=== PATIENT | female | born 1970 | race Caucasian/White ===

== ENCOUNTER 2016-09-08 15:44 | Emergency (ER) | payer MEDICAID ==
[~2016-09-08] VITALS: Ht 157.5 cm; Wt 66.0 kg
[2016-09-08 15:51] VITALS: Ht 157.5 cm; Wt 66.0 kg
[2016-09-08] MEDS ORDERED: HYDROCODONE/APAP (5/325) TAB PO ONE (19:00)
--- NOTE | 2016-09-08 19:01 | ERD ---
ER Documentation Chief Complaint Date/Time DATE: 09/08/16 TIME: 18:58 Chief Complaint Complains of abdominal pain x 3 days HPI 46-year-old female who presents the emergency department today complaining of abdominal pain that started yesterday. Patient states that she ate [place] test and started having pain after that. States that the pain comes and goes. She took Tylenol 12 PM today denies any nausea vomiting diarrhea, dysuria, fevers or chills. ROS All systems reviewed and are negative except as per history of present illness. Medications Home Meds Active Scripts Famotidine* (Pepcid*) 20 Mg Tablet, 20 MG PO BID for 10 Days, TAB Prov:MAHIN NICKERSON PA-C 09/08/16 Ibuprofen* (Motrin*) 400 Mg Tab, 400 MG PO Q6, #30 TAB Prov:MAHIN NICKERSON PA-C 09/08/16 Hydrocodone/Acetaminophen ([place] 5-325 Tablet) 1 Each Tablet, 1 TAB PO Q6H Y for PAIN, #12 TAB Prov:MAHIN NICKERSON PA-C 09/08/16 Allergies Allergies: Coded Allergies: No Known Allergy (Unverified , 09/08/16) PMhx/Soc Medical and Surgical Hx: pt denies Medical Hx, pt denies Surgical Hx Hx Alcohol Use: No Hx Substance Use: No Hx Tobacco Use: No Smoking Status: Never smoker Physical Exam Vitals Vital Signs Date Time Temp Pulse Resp B/P Pulse Ox O2 Delivery O2 Flow Rate FiO2 09/08/16 15:51 98.3 62 20 120/55 98 Physical Exam Const: No acute distress Head: Atraumatic Eyes: Normal Conjunctiva ENT: Normal External Ears, Nose and Mouth. Neck: Full range of motion..~ No meningismus. Resp: Clear to auscultation bilaterally Cardio: Regular rate regular rhythm ABD: Soft, periumbilical tenderness. Normal bowel sounds. No epigastric pain no right upper quadrant pain no left lower quadrant pain no right lower quadrant pain. No tenderness McBurney's. Skin: No petechiae or rashes Back: No midline or flank tenderness Ext: No cyanosis, or edema Neur: Awake and alert Psych: Normal Mood and Affect Results 24 hrs Laboratory Tests Test 09/08/16 19:10 Bedside Urine pH (LAB) 6.0 Bedside Urine Protein (LAB) Negative Bedside Urine Glucose (UA) Negative Bedside Urine Ketones (LAB) Negative Bedside Urine Blood Negative Bedside Urine Nitrite (LAB) Negative Bedside Urine Leukocyte Esterase (L Negative Current Medications Medications (Trade) Dose Ordered Sig/Layo Route PRN Reason Start Time Stop Time Status Last Admin Dose Admin Acetaminophen/ Hydrocodone Bitart ([place] (5/325)) 1 tab ONCE ONCE PO 09/08/16 19:00 09/08/16 19:01 Cancel Ibuprofen (Motrin) 800 mg ONCE ONCE PO 09/08/16 19:30 09/08/16 19:31 09/08/16 19:10 Procedures/MDM Is a 46-year-old female who presents to the emergency department today complaining of abdominal pain that started yesterday after eating her knee does. On physical exam patient has periumbilical pain. She has no other symptoms. She has no nausea vomiting or diarrhea or dysuria. I did obtain a UA and urine test. I had planned to obtain laboratory work given the patient's age and complaint of abdominal pain however patient declined at this time stating that she just wanted something for her pain and wanted to be able to get to work tonight. This is the patient's first visit to the emergency department UA is negative for infection Urine test is negative I had originally offered the patient [place] however she stated that she wanted to get to work tonight and therefore I gave her Motrin here in the emergency department. I will give her prescription for [place], Motrin, Pepcid for Patient has abdominal pain of uncertain etiology however patient is afebrile and otherwise well-appearing. She does have some periumbilical pain however she has no nausea or vomiting, diarrhea dysuria or any other symptoms and I do have low suspicion for acute surgical abdomen at this time. At this time the patient is stable for discharge and outpatient management. Patient should follow up with their PCP in the next 1-2 days. They may return to the emergency department sooner for any persistent or worsening of symptoms. Patient understood and agreed with the plan. Departure Diagnosis: Primary Impression: Abdominal pain Abdominal location: periumbilical Qualified Code: R10.33 - Periumbilical abdominal pain Condition: Fair MAHIN NICKERSON PA-C September 08, 2016 19:01
[2016-09-08 19:09] LABS: URINE BLOOD (Dip) POC Negative (NEGATIVE)
[2016-09-08] MEDS ORDERED: IBUP400T22 PO (19:17)
[2016-09-08] MEDS ORDERED: HYDR-906 PO (19:17)
[2016-09-08] MEDS ORDERED: FAMO-18 PO (19:18)
[2016-09-08] MEDS ORDERED: IBUPROFEN 800 MG TAB PO ONE (19:30)
== END 2016-09-08 19:22 | disposition home or self-care (01) ==
LOC: FTE 15:44
DX: R10.33 Periumbilical pain (principal)
CPT/HCPCS: 81003; Z7502; Z7610; 99283

== ENCOUNTER 2018-04-26 20:00 | Emergency (ER) | END 2018-04-27 00:47 | disposition home or self-care (01) ==

== ENCOUNTER 2018-05-21 07:00 | Emergency (ER) | payer MEDICAID ==
[~2018-05-21] VITALS: Wt 66.3 kg
[~2018-05-21 07:00] MED LIST: FAMO-96 PO; HYDR-4011 PO; IBUP-1542 PO; IBUP-1561 PO; TRAM50TA2 PO
[2018-05-21] MEDS ORDERED: morphine 4 MG/ML VIAL IV STA (07:34)
[2018-05-21] MEDS ORDERED: SOD CHLORIDE 0.9% 1,000 ML IV STA (07:34)
[2018-05-21] MEDS ORDERED: ONDANSETRON 4 MG INJ IV STA (07:34)
--- NOTE | 2018-05-21 07:40 | ERD ---
ER Documentation Chief Complaint Chief Complaint ABD PAIN WITH FEVER X 1 WEEK; DYSURIA/VOMITING X 3 DAYS HPI This is a 47-year-old female with no past medical history that presents to the emergency department complaining of abdominal pain for 1 week. She states the pain has been localized to the left lower quadrant does not radiate. 3 days prior to arrival she started to develop frequency urgency and dysuria. She had multiple episodes of nonbloody nonbilious emesis with no diarrhea. She has been taking ibuprofen as she states she has had a tactile fever with shaking and chills. She denies any gross hematuria. She states he is never had any similar symptoms in the past. There is no alleviating or exacerbating factors to the abdominal pain which she states is a sharp shooting pain, 8 out of 10 in intensity. She denies any recent travel. She has no chest pain. She has no shortness of breath. She had a previous hysterectomy. ROS All systems reviewed and are negative except as per history of present illness. Medications Home Meds Reported Medications Levothyroxine Sodium* (Levothyroxine Sodium*) 50 Mcg Tablet, 50 MCG PO BEFORE BREAKFAST, #30 TAB 05/21/18 Discontinued Scripts Tramadol HCl (Tramadol HCl) 50 Mg Tablet, 50 MG PO Q6 PRN for PAIN, #20 TAB Prov:SARAHI BLOOM PA-C 04/27/18 Ibuprofen* (Motrin*) 600 Mg Tab, 600 MG PO Q6H PRN for PAIN AND OR ELEVATED TEMP, #30 TAB Prov:SARAHI BLOOM PA-C 04/27/18 Famotidine* (Pepcid*) 20 Mg Tablet, 20 MG PO BID for 10 Days, TAB Prov:MAHIN NICKERSON PA-C 09/08/16 Ibuprofen* (Motrin*) 400 Mg Tab, 400 MG PO Q6, #30 TAB Prov:MAHIN NICKERSON PA-C 09/08/16 Hydrocodone/Acetaminophen ([place] 5-325 Tablet) 1 Each Tablet, 1 TAB PO Q6H PRN for PAIN, #12 TAB Prov:MAHIN NICKERSONC 09/08/16 Allergies Allergies: Coded Allergies: No Known Allergy (Unverified , 09/08/16) PMhx/Soc History of Surgery: Yes (HYSTERECTOMY) Anesthesia Reaction: No Hx Neurological Disorder: No Hx Respiratory Disorders: No Hx Cardiac Disorders: No Hx Miscellaneous Medical Probl: Yes (HYTHYROIDISM) Hx Alcohol Use: No Hx Substance Use: No Hx Tobacco Use: No Smoking Status: Never smoker Physical Exam Vitals Vital Signs Date Temp Pulse Resp B/P (MAP) Pulse Ox O2 O2 Flow FiO2 Time Delivery Rate 05/21/18 99.2 88 18 116/51 99 07:03 (72) Physical Exam Constitutional:Well-developed. Well-nourished. HEENT:Normocephalic. Atraumatic.Pupils were equal round reactive to light. Dry mucous membranes.No tonsillar exudates. Neck: No nuchal rigidity. No lymphadenopathy. No posterior cervical spine tenderness or step-offs. Respiratory: Not using accessory muscles of respiration.Lungs were clear to auscultation bilaterally. No rhonchi. No rales. No wheezing. Cardiovascular: Regular rate regular rhythm.No murmurs. No rubs were appreciated.S1, S2 normal. Distal pulses are palpable 2+ bilaterally. GI: Abdomen was soft. Left lower quadrant tenderness. Non Distended. No pulsatile abdominal masses or bruits. No rebound. Voluntary guarding. Bowel sounds were present and normal. Muscle skeletal: Full range of motion of both the upper and lower extremities bilaterally.Normal muscle tone.No assymetrical calf tenderness or swelling. Skin: No petechia, no purpura. No lesions on the palms or the soles of the feet. No maculopapular rash. NEURO: Patient was alert, awake, orientated x3.No facial droop. Gait observed and normal with no ataxia.Speech had regular rate and rhythm. No focal neurological deficits. Result Diagram: 05/21/18 0741 05/21/18 0741 Results 24 hrs Laboratory Tests Test 05/21/18 07:41 White Blood Count 16.1 10^3/ul Red Blood Count 4.04 10^6/ul Hemoglobin 12.7 g/dl Hematocrit 37.6 % Mean Corpuscular Volume 93.1 fl Mean Corpuscular Hemoglobin 31.4 pg Mean Corpuscular Hemoglobin Concent 33.8 g/dl Red Cell Distribution Width 12.7 % Platelet Count 250 10^3/UL Mean Platelet Volume 9.9 fl Immature Granulocytes % 0.600 % Neutrophils % 85.2 % Lymphocytes % 5.1 % Monocytes % 8.8 % Eosinophils % 0.1 % Basophils % 0.2 % Nucleated Red Blood Cells % 0.0 /100WBC Immature Granulocytes # 0.090 10^3/ul Neutrophils # 13.7 10^3/ul Lymphocytes # 0.8 10^3/ul Monocytes # 1.4 10^3/ul Eosinophils # 0.0 10^3/ul Basophils # 0.0 10^3/ul Nucleated Red Blood Cells # 0.0 10^3/ul Prothrombin Time 13.6 Sec Prothrombin Time Ratio 1.1 INR International Normalized Ratio 1.03 Activated Partial Thromboplast Time 29.9 Sec Urine Color YELLOW Urine Clarity CLOUDY Urine pH 5.0 Urine Specific [place] 1.017 Urine Ketones NEGATIVE mg/dL Urine Nitrite POSITIVE mg/dL Urine Bilirubin NEGATIVE mg/dL Urine Urobilinogen NEGATIVE mg/dL Urine Leukocyte Esterase 3+ [place]/ul Urine Microscopic RBC 5 /HPF Urine Microscopic WBC > 182 /HPF Urine Squamous Epithelial Cells FEW /HPF Urine Renal Epithelial Cells FEW /HPF Urine Bacteria MANY /HPF Urine Mucus MODERATE /HPF Urine Hemoglobin 2+ mg/dL Urine Glucose NEGATIVE mg/dL Urine Total Protein 1+ mg/dl Sodium Level 140 mmol/L Potassium Level 3.5 mmol/L Chloride Level 102 mmol/L Carbon Dioxide Level 24 mmol/L Anion Gap 14 Blood Urea Nitrogen 15 mg/dl Creatinine 0.86 mg/dl Est Glomerular Filtrat Rate mL/min > 60 mL/min Glucose Level 128 mg/dl Calcium Level 8.9 mg/dl Total Bilirubin 0.3 mg/dl Direct Bilirubin 0.00 mg/dl Indirect Bilirubin 0.3 mg/dl Aspartate Amino Transf (AST/SGOT) 17 IU/L Alanine Aminotransferase (ALT/SGPT) 19 IU/L Alkaline Phosphatase 64 IU/L Troponin I < 0.012 ng/ml Total Protein 7.5 g/dl Albumin 3.9 g/dl Globulin 3.60 g/dl Albumin/Globulin Ratio 1.08 Amylase Level 56 U/L Lipase 78 U/L Current Medications Medications Dose Sig/Layo Start Time Status Last (Trade) Ordered Route PRN Stop Time Admin Dose Reason Admin Sodium 1,000 ml @ Q1H STAT 05/21/18 DC 05/21/18 Chloride 1,000 mls/hr IV 07:34 07:48 05/21/18 08:33 Morphine 4 mg ONCE STAT 05/21/18 DC 05/21/18 Sulfate IV 07:34 07:48 (morphine) 05/21/18 07:36 Ondansetron 4 mg ONCE STAT 05/21/18 DC 05/21/18 HCl (Zofran IV 07:34 07:48 Inj) 05/21/18 07:36 IV Flush 10 ml STK-MED 05/21/18 DC 05/21/18 (NS 10 ml) ONCE .ROUTE 07:54 08:31 05/21/18 07:55 Sodium 100 ml @ ud STK-MED 05/21/18 DC 05/21/18 Chloride ONCE .ROUTE 07:54 08:31 05/21/18 07:55 Iohexol 150 ml STK-MED 05/21/18 DC 05/21/18 (Omnipaque ONCE .ROUTE 07:54 08:31 300mg/ ml) 05/21/18 07:55 Procedures/MDM This patient presented to the emergency department with abdominal pain and was seen and evaluated by myself. My differential diagnosis included but was not limited to abdominal aortic aneurysm, appendicitis, pancreatitis, perforated peptic ulcer, perforated viscus, Boerhaaves syndrome or visceral pain such as diverticulitis, DKA, esophagitis, hepatitis or bowel obstruction. The patient was placed on a alarm security or surveillance monitor, continuous pulse oximetry, and IV access was established by nursing staff. The patient received intravenous morphine and Zofran for analgesia control. I obtained a 12-lead EKG tracing to rule out for atypical microinfarction. 12 Lead EKG tracing ordered and reviewed by myself showed: Normal sinus rhythm of 75 bpm and no arrhythmia. LA interval normal. QRS duration normal. No ST segment elevation No ST segment depression. No changes consistent with acute ischemia. The patient leukocytosis with white blood cell count of 16,000. The patient had a significant urinary tract infection with pyuria of greater than 182 white blood cells. Her physical exam findings were suggestive of pyelonephritis. She has received IV Toradol. Urine culture was obtained and she received IV c eftriaxone. Due to the severity of her pain with voluntary guarding I did feel is necessary to obtain a CT scan of the abdomen. This was reviewed by myself and the radiologist and indicated the following: Findings suggestive of right-sided urinary tract infection including pyelonephritis. No associated loculated drainable abscess. Nonobstructing 3 mm stone in the interpolar right kidney. No stone is seen within the right ureter or bladder. Trace right pleural effusion, perhaps reactive. The patient's pain had improved. There is no evidence of sepsis. Patient was nontoxic in appearance. She was able to tolerate oral intake. I did feel she can be safely discharged home with oral antibiotics which included Keflex and Motrin for analgesic control. The patient was discharged home in fair condition. They were instructed to return to the emergency department at any time if there was any worsening of their condition. The patient stated they would follow up with their PCP in the next 24-48 hours to initiate a suitable medication regimen under the care of their PCP as well as to allow their PCP to monitor any drug reactions. The patient was discharged home with prescriptions after they gave informed consent to the new medication. They were also fully informed by myself on the adverse effects and adverse drug interactions in order to provide adequate safeguards to prevent possible adverse reactions to medications. Departure Diagnosis: Primary Impression: Pyelonephritis Additional Impression: Nephrolithiasis Condition: ALEKSEY Macias MD May 21, 2018 07:40
[2018-05-21] MEDS ORDERED: IOHEXOL 300MG/ML 150 ML BTL ONE (07:54)
[2018-05-21] MEDS ORDERED: SOD CHLORIDE 0.9% 100 ML ONE (07:54)
[2018-05-21] MEDS ORDERED: LEVO50TA7 PO (08:56)
[2018-05-21] MEDS ORDERED: KETOROLAC 30 MG INJ IV STA (09:29)
[2018-05-21] MEDS ORDERED: CEFTRIAXONE 1 GM/50 ML (PMX) 50 ML IVPB ONE (09:30)
[2018-05-21] MEDS ORDERED: CEPH-443 PO (09:33)
[2018-05-21] MEDS ORDERED: PHEN-537 PO (09:33)
[2018-05-21] MEDS ORDERED: IBUP800T48 PO (09:33)
[2018-05-21] MEDS ORDERED: PHENAZOPYRIDINE 100 MG TAB PO ONE (10:00)
[2018-05-21] MEDS ORDERED: FLUC150T PO (11:16)
[2018-05-21 11:22] VITALS: BP 92/55; PULSE 89; RESP 17
== END 2018-05-21 11:48 | disposition home or self-care (01) ==
LOC: E/R 07:00
DX: N12 Tubulo-interstitial nephritis, not specified as acute or chronic (principal); N20.0 Calculus of kidney
CPT/HCPCS: 74177; 80053; 81001; 82150; 83690; 84484; 84703; 85025; 85610; 85730; 87086; 87400; 93005; 96374; 96375; J0696; J1885; J2270; J2405; J7030; Q9967; Z7502; Z7610

== ENCOUNTER 2018-10-16 17:11 | Observation (INO) | payer MEDICAID ==
[~2018-10-16] VITALS: Ht 157.5 cm; Wt 66.0 kg
[~2018-10-16 17:11] MED LIST changes: +CEPH-443 PO; -FAMO-96 PO; +FLUC150T PO; -HYDR-4011 PO; -IBUP-1542 PO; -IBUP-1561 PO; +IBUP800T48 PO; +LEVO50TA7 PO; +PHEN-537 PO; -TRAM50TA2 PO
[2018-10-16 17:18] VITALS: Ht 157.5 cm; Wt 66.0 kg
[2018-10-16] MEDS ORDERED: SOD CHLORIDE 0.9% 1,000 ML IV STA (17:40)
--- NOTE | 2018-10-16 18:16 | STROKE ---
Date/Time of Note Date/Time of Note DATE: 10/16/18 TIME: 21:14 Patient Information General Arrival Date Age 48 Gender female Weight 66 kg Vital Signs Vital Signs Vital Signs Date Temp Pulse Resp B/P (MAP) Pulse Ox O2 O2 Flow FiO2 Time Delivery Rate 10/16/18 Nasal 2 17:59 Cannula 10/16/18 98.1 74 18 125/62 98 17:18 (83) Patient History Current Medications Allergies: Coded Allergies: No Known Allergy (Unverified , 09/08/16) NIH Stroke Scale NIH Stroke Scale Date/Time Recorded DATE: 10/16/18 TIME: 21:14 Submitted By Dirk Martin t-PA Imaging Review Date/Time Imaging Reviewed DATE: 10/16/18 TIME: 21:14 t-PA Administration Weight 66 kg Recommedation submitted by Dirk Martin Recommendations Recommendation Called regarding advice for further workup. 48yo woman who woke up at noon with b/l facial numbness, blurry vision, and loss of taste. Blurry vision resolved. Head CT without acute process. Advised that would be atypical for an acute ischemic stroke. Also, not a candidate for acute stroke intervention given low NIHSS and out of time window for tPA. Advised to proceed with MRI head first, and from there, should demonstrate a stroke, can proceed with rest of workup, including vessel imaging, at that time. DIRK MARTIN Oct 16, 2018 18:16
[2018-10-16] MEDS ORDERED: ASPIRIN 325 MG TAB PO ONE (19:30)
--- NOTE | 2018-10-16 21:15 | ERD ---
ER Documentation Chief Complaint Chief Complaint NUMBNESS OF FACE , ONSET 1200 MD , B/L EQUAL DOCK HAND , NO DROOP HPI This is a 48-year-old female who states she took a nap at 1130 when she woke up at noon she had bilateral facial numbness with the inability to taste with blurry vision bilaterally. She had no difficulty swallowing or speaking no focal distal extremity complaints of numbness or weakness. No headache no prior stroke symptoms. She says currently her vision is back to normal still has the facial and taste symptoms. She try to eat a meal to see if her taste would get better but she cannot taste any of the food ROS All systems reviewed and are negative except as per history of present illness. Medications Home Meds Active Scripts Fluconazole* (Diflucan*) 150 Mg Tablet, 150 MG PO ONCE, #1 TAB Prov:ALEKSEY MORA MD 05/21/18 Phenazopyridine Hcl* (Pyridium*) 100 Mg Tab, 100 MG PO TID PRN for URINARY PAIN, #8 TAB Prov:ALEKSEY MORA MD 05/21/18 Cephalexin* (Keflex*) 500 Mg Capsule, 500 MG PO QID for 10 Days, CAP Prov:ALEKSEY MORA MD 05/21/18 Ibuprofen* (Motrin*) 800 Mg Tab, 800 MG PO Q6H PRN for PAIN AND OR ELEVATED TEMP, #30 TAB Prov:ALEKSEY MORA MD 05/21/18 Reported Medications Levothyroxine Sodium* (Levothyroxine Sodium*) 50 Mcg Tablet, 50 MCG PO BEFORE BREAKFAST, #30 TAB 05/21/18 Allergies Allergies: Coded Allergies: No Known Allergy (Unverified , 09/08/16) PMhx/Soc History of Surgery: Yes (HYSTERECTOMY) Anesthesia Reaction: No Hx Neurological Disorder: No Hx Respiratory Disorders: No Hx Cardiac Disorders: No Hx Miscellaneous Medical Probl: Yes (HYTHYROIDISM) Hx Alcohol Use: No Hx Substance Use: No Hx Tobacco Use: No Smoking Status: Never smoker FmHx Family History: No coronary disease Physical Exam Vitals Vital Signs Date Temp Pulse Resp B/P (MAP) Pulse Ox O2 O2 Flow FiO2 Time Delivery Rate 10/16/18 64 16 116/63 100 Nasal 2.0 18:43 (80) Cannula 10/16/18 Nasal 2 17:59 Cannula 10/16/18 98.1 74 18 125/62 98 17:18 (83) Physical Exam Const: Well-developed, well-nourished Head: Atraumatic, normocephalic Eyes: Normal Conjunctiva, PERRLA, EOMI, normal sclera, no nystagmus ENT: Normal External Ears, Nose and Mouth, moist mucus membranes, bilateral face paresthesia from the anterior face and down, she cannot taste. There is no facial weakness. Neck: Full range of motion. No meningismus, no lymphadenopathy. Resp: Clear to auscultation bilaterally, no wheezing, rhonchi, rales Cardio: Regular rate and rhythm, no murmurs, S1 S2 present Abd: Soft, non tender x 4, non distended. Normal bowel sounds, no g uarding or rebound, no pulsitile abdominal masses or bruits Skin: No petechiae or rashes, no ecchymosis , no maculopapular rash Back: No midline or flank tenderness Ext: No cyanosis, or edema, FROM x 4, normal inspection, neurovascularly intact x 4 Neur: Awake and alert, STR 5/5 x 4, sensation intact x 4, no focal findings, cerebellum intact Psych: Normal Mood and Affect Result Diagram: 10/16/18175510/16/181755 Results 24 hrs Laboratory Tests Test 10/16/18 17:56 10/16/18 19:03 White Blood Count 8.2 10^3/ul Red Blood Count 4.39 10^6/ul Hemoglobin 13.6 g/dl Hematocrit 40.8 % Mean Corpuscular Volume 92.9 fl Mean Corpuscular Hemoglobin 31.0 pg Mean Corpuscular Hemoglobin Concent 33.3 g/dl Red Cell Distribution Width 13.1 % Platelet Count 258 10^3/UL Mean Platelet Volume 10.3 fl Immature Granulocytes % 0.200 % Neutrophils % 47.4 % Lymphocytes % 32.4 % Monocytes % 8.3 % Eosinophils % 11.2 % Basophils % 0.5 % Nucleated Red Blood Cells % 0.0 /100WBC Immature Granulocytes # 0.020 10^3/ul Neutrophils # 3.9 10^3/ul Lymphocytes # 2.6 10^3/ul Monocytes # 0.7 10^3/ul Eosinophils # 0.9 10^3/ul Basophils # 0.0 10^3/ul Nucleated Red Blood Cells # 0.0 10^3/ul Prothrombin Time 11.6 Sec Prothrombin Time Ratio 0.9 INR International Normalized Ratio 0.84 Activated Partial Thromboplast Time 29.7 Sec Sodium Level 141 mmol/L Potassium Level 3.7 mmol/L Chloride Level 106 mmol/L Carbon Dioxide Level 28 mmol/L Anion Gap 7 Blood Urea Nitrogen 20 mg/dl Creatinine 0.99 mg/dl Est Glomerular Filtrat Rate mL/min 60 mL/min Glucose Level 100 mg/dl Calcium Level 9.3 mg/dl Troponin I < 0.012 ng/ml Triglycerides Level 149 mg/dl Cholesterol Level 160 mg/dl LDL Cholesterol, Calculated 85 mg/dl HDL Cholesterol 45 mg/dl Cholesterol/HDL Ratio 3.5 RATIO Thyroid Stimulating Hormone (TSH) 1.860 MIU/L Free Thyroxine 1.50 ng/dl Free Triiodothyronine (T3) pg/mL 4.19 pg/ml POC Beta HCG, Qualitative NEGATIVE Current Medications Medications Dose Sig/Layo Start Time Status Last (Trade) Ordered Route PRN Stop Time Admin Dose Reason Admin Sodium 1,000 ml @ Q1H STAT 10/16/18 DC 10/16/18 Chloride 1,000 mls/hr IV 17:40 10/16/18 18:14 18:39 Aspirin 325 mg ONCE ONCE 10/16/18 DC 10/16/18 (Aspirin) PO 19:30 10/16/18 20:26 19:31 Procedures/[place] [id number] Radiology Main Line: [phone] DIAGNOSTIC IMAGING REPORT Patient: SHABBIR CASTANEDA : 1970 Age: 48 Sex: F MR #: [id number] DOS: 10/16/18 1740 Ordering MD: AIMEE MISHRA DO Location: E/R Room/Bed: PROCEDURE: CT Brain without contrast. CLINICAL INDICATION: Stroke TECHNIQUE: A CT of the brain was performed on a multidetector CT scanner utilizing axial imaging from the skull base through the vertex without IV c ontrast. Multiplanar reformatted images were made. Images were reviewed on a PACS workstation. The CTDIvol is 38 mGy and the DLP is 634 mGycm. DICOM images are available. One or more of the following dose reduction techniques were utilized: 1.) Automated exposure control 2.) Adjustment of the mA +/- kV according to patient's size 3.) Use of iterative reconstruction technique. COMPARISON: An FINDINGS: There is no intracranial hemorrhage, mass effect, or midline shift. No extra- axial fluid collection is seen. The ventricles and sulci are normal in size and configuration. The density of the brain is normal, and the nye white matter differentiation appears well-preserved. The visualized paranasal sinuses and osseous structures are grossly unremarkable. IMPRESSION: 1. No evidence of acute intracranial pathology. 2. The brain is normal in appearance. Findings were telephoned to referring physician at 05:55 p.m. on date of exam. .Morgan Baires MD, MD Date Time Electronically viewed and signed by .Morgan Baires MD, on 10/16/2018 17:56 .A/ CC: AIMEE MISHRA DO [id number] [place] [id number] Radiology Main Line: [phone] DIAGNOSTIC IMAGING REPORT Patient: SHABBIR CASTANEDA : 1970 Age: 48 Sex: F MR #: [id number] DOS: 10/16/18 1740 Ordering MD: AIMEE MISHRA DO Location: E/R Room/Bed: PROCEDURE: XR Chest. CLINICAL INDICATION: Stroke TECHNIQUE: XR CHEST AP PORTABLE COMPARISON: None available. FINDINGS: The lungs are clear. No focal opacification is seen. No pneumothorax or pleural effusion is seen. The cardiomediastinal silhouette is unremarkable. The osseous structures are grossly unremarkable. IMPRESSION: No evidence of acute cardiopulmonary disease. RPTAT: QQ .Domingo Adamson MD, Date Time Electronically viewed and signed by .Domingo Adamson MD, on 10/16/2018 18:25 .A/ CC: AIMEE MISHRA DO [id number] Brain MRI report by radiologist on the phone says there is no CVA but there is white matter changes in the left frontal lobe that could be MS lesions also there is bilateral parotid nodules. The 7th cranial nerve goes through the parotids and she is recommending dedicated MRI of this region to see if there is some type of parotid inflammation impinging both of her 7th cranial nerve that would be affecting her taste however the facial sensation would be more likely a 5th cranial nerves as well We will admit for further work-up Departure Diagnosis: Primary Impression: Facial numbness Additional Impression: Loss of taste Condition: Stable AIMEE MISHRA DO Oct 16, 2018 21:11
[2018-10-16] MEDS ORDERED: SOD CHLORIDE 0.9% 1,000 ML IV SCH (21:19)
[2018-10-16] MEDS ORDERED: ACETAMINOPHEN 325 MG TAB PO PRN ×2 (21:30→23:30)
[2018-10-16] MEDS ORDERED: ONDANSETRON 4 MG INJ IV PRN ×2 (21:30→23:30)
[2018-10-16 23:08] VITALS: BP 126/61; PULSE 60; RESP 18
[2018-10-16 23:12] VITALS: BP 126/61; PULSE 60; RESP 20
[2018-10-16] MEDS ORDERED: DOCUSATE SODIUM 100 MG CAP PO PRN (23:30)
[2018-10-16] MEDS ORDERED: LORAZEPAM 2 MG INJ IV PRN (23:30)
[2018-10-16] MEDS ORDERED: HYDROCODONE/APAP (5/325) TAB PO PRN (23:30)
[2018-10-16] MEDS ORDERED: morphine 2 MG INJ IV PRN (23:30)
[2018-10-16] MEDS ORDERED: MAGNESIUM HYDROXIDE 30ML CUP PO PRN (23:30)
[2018-10-16] MEDS ORDERED: NITROGLYCERIN (SL) 0.4 MG TAB SL PRN (23:30)
[2018-10-16] MEDS ORDERED: ALBUTEROL/IPRATROPIUM (NEB) 3 ML AMP HHN PRN (23:30)
[2018-10-16] MEDS ORDERED: NACL 0.9% 3 ML SYG IV SCH (23:30)
[2018-10-16] MEDS ORDERED: hydrALAzine 20 MG INJ IV PRN (23:30)
[2018-10-16] MEDS: SOD CHLORIDE 0.45% 1,000 ML IV SCH (23:46)
[2018-10-17 02:31] VITALS: BP_SYST 95; BP_DIAS 63; BP_DIAS 93; PULSE 58; RESP 19
--- NOTE | 2018-10-17 04:37 | HP ---
Date/Time of Note Date/Time of Note DATE: 10/17/18 TIME: 04:30 Assessment/Plan VTE Prophylaxis SCD applied (from Nsg): No SCD contraindicated: other Pharmacological prophylaxis: heparin Lines/Catheters IV Catheter Type (from Nrsg): Peripheral IV Assessment/Plan Hospital Course Assessment and plan: 48-year-old female past medical history of hypothyroidism who comes into the ER after experiencing facial numbness, ruled out for acute stroke but does have nonspecific white matter hyperintensity on brain MRI. 1. Facial numbness: Given the abnormal MRI brain scan findings, will go ahead and obtain neurology consult -Consider ENT consult as well for further evaluation of the parotid glands given the MRI findings and will get MRI brain and neck with contrast as recommended by the radiologist. -Follow-up carotid Doppler study and echocardiogram, also check TSH, A1c, lipid panel -For now aspirin 2. Hypothyroidism: We will follow thyroid panel labs -Continue Synthroid Result Diagram: 10/16/18 1756 10/16/18 1756 Results 24hrs Laboratory Tests Test 10/16/18 17:56 10/16/18 19:03 10/16/18 19:30 White Blood Count 8.2 # Red Blood Count 4.39 Hemoglobin 13.6 Hematocrit 40.8 Mean Corpuscular Volume 92.9 Mean Corpuscular Hemoglobin 31.0 Mean Corpuscular Hemoglobin Concent 33.3 Red Cell Distribution Width 13.1 Platelet Count 258 Mean Platelet Volume 10.3 Immature Granulocytes % 0.200 Neutrophils % 47.4 Lymphocytes % 32.4 Monocytes % 8.3 Eosinophils % 11.2 H Basophils % 0.5 Nucleated Red Blood Cells % 0.0 Immature Granulocytes # 0.020 Neutrophils # 3.9 Lymphocytes # 2.6 Monocytes # 0.7 Eosinophils # 0.9 H Basophils # 0.0 Nucleated Red Blood Cells # 0.0 Prothrombin Time 11.6 L Prothrombin Time Ratio 0.9 INR International Normalized Ratio 0.84 Activated Partial Thromboplast Time 29.7 Sodium Level 141 Potassium Level 3.7 Chloride Level 106 Carbon Dioxide Level 28 Anion Gap 7 Blood Urea Nitrogen 20 Creatinine 0.99 Est Glomerular Filtrat Rate mL/min 60 Glucose Level 100 Calcium Level 9.3 Troponin I < 0.012 Triglycerides Level 149 Cholesterol Level 160 LDL Cholesterol, Calculated 85 HDL Cholesterol 45 Cholesterol/HDL Ratio 3.5 Thyroid Stimulating Hormone (TSH) 1.860 Free Thyroxine 1.50 Free Triiodothyronine (T3) pg/mL 4.19 POC Beta HCG, Qualitative NEGATIVE Urine Opiates Screen Negative Urine Barbiturates Negative Urine Amphetamines Screen Negative Urine Benzodiazepines Screen Negative Urine Cocaine Screen Negative Urine Cannabinoids Negative HPI/ROS Admit Date/Time Admit Date/Time Oct 16, 2018 at 21:20 Hx of Present Illness 48-year-old female past medical history of hypothyroidism who comes into the ER after experiencing facial numbness. Patient stated she took a nap at 1130 yesterday when she woke up at noon yesterday she had bilateral facial numbness with the inability to taste with blurry vision bilaterally. Patient denied diff iculty swallowing or speaking no focal distal extremity complaints of numbness or weakness. No headache and no prior stroke symptoms. She says currently her vision is back to normal but still has the facial and taste symptoms. Apparently in the ER she tried to meal to see if her taste would get better but she cannot taste any of the food. No chest pain or shortness breath, nausea vomiting, diarrhea constipation, fever chills. Telemetry neurologist evaluated the patient recommend an MRI of the brain as the head CT did not show any acute findings. However the MRI of the brain did show: 1. No definite evidence of acute intracranial hemorrhage, infarcts or acute intracranial pathology. 2. Bilateral FLAIR and T2 white matter nonspecific hyperintensities. Differential diagnosis to include migrainous vasculopathy, vasculitis, demyelinating disease and early chronic microvascular ischemic disease. Recommend urologic consultation and follow-up contrast brain MRI. 3. Bilateral superficial parotid gland nodules measuring 7 mm on the right and 10 mm on the left. Recommend ENT consultation and follow-up high neck and dedicated parotid MRI. PMH/Family/Social Past Medical History Medications Current Medications Sodium Chloride 1,000 ml @ 80 mls/hr [id number] IV ; Start 10/16/18 at 21:19; Stop 10/17/18 at 09:48 Ondansetron HCl (Zofran Inj) 4 mg BRIDGE ORDER PRN IV NAUSEA/VOMITING; Start 10/16/18 at 21:30; Stop 10/17/18 at 21:29 Acetaminophen (Tylenol Tab) 650 mg ER BRIDGE PRN PO .MILD PAIN 1-3 OR TEMP; Start 10/16/18 at 21:30; Stop 10/17/18 at 21:29 IV Flush (NS 3 ml) 3 ml PER PROTOCOL IV ; Start 10/16/18 at 23:30 Ondansetron HCl (Zofran Inj) 4 mg Q6H PRN IV NAUSEA/VOMITING; Start 10/16/18 at 23:30 Acetaminophen (Tylenol Tab) 650 mg Q6H PRN PO .PAIN 1-3 OR TEMP; Start 10/16/18 at 23:30 Acetaminophen/ Hydrocodone Bitart ([place] (5/325)) 1 tab Q6H PRN PO .MOD PAIN 4- 6 Last administered on 10/16/18at 23:54; Admin Dose 1 TAB; Start 10/16/18 at 23:30 Morphine Sulfate (morphine) 2 mg Q4H PRN IV .SEVERE PAIN 7-10; Start 10/16/18 at 23:30 Docusate Sodium (Colace) 100 mg Q12H PRN PO .CONSTIPATION; Start 10/16/18 at 23:30 Magnesium Hydroxide (Milk Of Mag) 30 ml DAILY PRN PO .CONSTIPATION; Start 10/16/18 at 23:30 Heparin Sodium (Porcine) (Heparin (5000 Units/1ml)) 5,000 unit Q12 SC ; Start 10/17/18 at 09:00 Sodium Chloride 1,000 ml @ 75 mls/hr [id number] IV Last administered on 10/16/18at 23:46; Admin Dose 75 MLS/HR; Start 10/16/18 at 23:05 Lorazepam (Ativan) 0.5 mg Q6H PRN IV ANXIETY; Start 10/16/18 at 23:30 Albuterol/ Ipratropium (Duoneb) 3 ml Q4H RESP THERAPY PRN HHN SHORTNESS OF BREATH; Start 10/16/18 at 23:30 Hydralazine HCl (Apresoline) 10 mg Q6H PRN IV ELEVATED BLOOD PRESSURE; Start 10/16/18 at 23:30 Nitroglycerin (Nitroglycerin (Sl Tab) 0.4 Mg) 1 tab Q5M PRN SL ANGINA; Start 10/16/18 at 23:30 Aspirin (Ecotrin) 325 mg DAILY PO ; Start 10/17/18 at 09:00 Levothyroxine Sodium (Synthroid) 50 mcg BEFORE BREAKFAST PO ; Start 10/17/18 at 07:00 Coded Allergies: No Known Allergy (Unverified , 09/08/16) Past Surgical History Past Surgical Hx: other (Hysterectomy) Social History Alcohol Use: none Smoking Status: Never smoker Drug Use: none Exam/Review of Systems Vital Signs Vitals Vital Signs Date Temp Pulse Resp B/P (MAP) Pulse Ox O2 O2 Flow FiO2 Time Delivery Rate 10/17/18 98.0 19 95/93 (94) 96 02:31 10/16/18 60 Room Air 23:12 10/16/18 2.0 18:43 Exam Exam Gen: Lying in bed, NAD Head: Atraumatic. Eyes: Normal Conjunctiva. ENT: Normal External Ears, Nose and Mouth. Neck: Full range of motion. No meningismus. Resp: Clear to auscultation bilaterally. Cardio: Regular rate and rhythm. Abd: Soft, nondistended, normal bowel sounds, non tender. Ext: No lower extremity edema bilaterally Neuro: 5 out of 5 strength bilateral lower extremity's, 4 out of 5 strength bilateral upper extremities, decreased handgrip strength bilaterally, sensation appears to be intact bilaterally ELSA YOUNG Oct 17, 2018 04:37
[2018-10-17] MEDS ORDERED: LEVOTHYROXINE 50 MCG TAB PO SCH (07:00)
[2018-10-17 08:33] VITALS: BP 98/54; PULSE 59; RESP 18
[2018-10-17] MEDS ORDERED: ASPIRIN (EC) 325 MG TAB PO SCH (09:00)
[2018-10-17] MEDS ORDERED: HEPARIN 5,000 UNIT/1 ML VIAL SC SCH (09:00)
--- NOTE | 2018-10-17 11:37 | CONSI ---
Assessment/Plan Assessment/Plan Assessment/Plan (Recall) 48 F who presents for evaluation of acute and transient bilateral face numbness and blurred vision w/ loss of taste...for which neurology is consulted. The clinical picture as presented is nonphysiologic... MRI brain shows nonspecific, scattered white matter hyperintensities.. P: Await MRI brain w/ contrast for further characterization Other medical workup and management per primary Will follow Consultation Date/Type/Reason Admit Date/Time Oct 16, 2018 at 21:20 Type of Consult Neurology Reason for Consultation bilateral face numbness and b/l blurred vision w/ loss of taste Requesting Provider: ELSA YOUNG Date/Time of Note DATE: 10/17/18 TIME: 11:31 Hx of Present Illness 48-year-old female past medical history of hypothyroidism who comes into the ER after experiencing facial numbness. Patient stated she took a nap at 1130 yesterday when she woke up at noon yesterday she had bilateral facial numbness with the inability to taste with blurry vision bilaterally. Patient denied difficulty swallowing or speaking no focal distal extremity complaints of numbness or weakness. No headache and no prior stroke symptoms. She says currently her vision is back to normal but still has the facial and taste symptoms. Apparently in the ER she tried to meal to see if her taste would get better but she cannot taste any of the food. No chest pain or shortness breath, nausea vomiting, diarrhea constipation, fever chills. o/w neg Objective Exam Vitals Vital Signs Date Temp Pulse Resp B/P (MAP) Pulse Ox O2 O2 Flow FiO2 Time Delivery Rate 10/17/18 97.9 59 18 98/54 (69) 97 08:33 10/16/18 Room Air 23:12 10/16/18 2.0 18:43 Intake and Output 10/16/18 10/16/18 10/17/18 1515:00 23:00 07:00 IntakeIntake Total 375 ml BalanceBalance 375 ml Exam PE: Gen Appearance: No Apparent Distress HEENT: Normocephalic Cardiovascular: Regular rate Lungs: Clear bilaterally Abdomen: Soft Extremities: Dry NE: The patient was alert and oriented. Language was normal. Fund of knowledge was normal. Pupils were equal and reactive to light. There was no afferent pupillary defect. Visual grimm were normal. Funduscopic examination was limited. Extra-ocular movements were full. Ptosis was absent. There was no nystagmus. Facial sensation was normal. Face was symmetric with normal strength. Hearing was intact. Palate movements were normal. Neck strength was normal. There was normal tongue bulk and speed of movement. Tone was normal. Muscle bulk was normal. I did not see fasciculations. Arms and legs were strong. Vibration sensation was normal. Temperature and pinprick sensation was normal. Rapid alternating movements were normal. There was no dysmetria. There was no intention tremor. Gait was deferred due to bedrest. Arm and leg reflexes were 2+ and symmetric. Mcclain's sign was absent. Plantar responses were flexor. Results Result Diagram: 10/17/18 0440 10/17/18 0440 Results 24hrs Laboratory Tests Test 10/16/18 17:56 10/16/18 19:03 10/16/18 19:30 10/17/18 04:40 White Blood Count 8.2 # 6.3 # Red Blood Count 4.39 4.16 L Hemoglobin 13.6 13.0 Hematocrit 40.8 38.8 Mean Corpuscular Volume 92.9 93.3 Mean Corpuscular 31.0 31.3 Hemoglobin Mean Corpuscular 33.3 33.5 Hemoglobin Concent Red Cell Distribution 13.1 13.4 Width Platelet Count 258 239 Mean Platelet Volume 10.3 10.9 H Immature Granulocytes % 0.200 0.300 Neutrophils % 47.4 35.4 L Lymphocytes % 32.4 40.6 Monocytes % 8.3 9.8 Eosinophils % 11.2 H 13.3 H Basophils % 0.5 0.6 Nucleated Red Blood 0.0 0.0 Cells % Immature Granulocytes # 0.020 0.020 Neutrophils # 3.9 2.2 Lymphocytes # 2.6 2.5 Monocytes # 0.7 0.6 Eosinophils # 0.9 H 0.8 H Basophils # 0.0 0.0 Nucleated Red Blood 0.0 0.0 Cells # Prothrombin Time 11.6 L Prothrombin Time Ratio 0.9 INR International 0.84 Normalized Ratio Activated 29.7 Partial Thromboplast Time Sodium Level 141 140 Potassium Level 3.7 3.6 Chloride Level 106 109 Carbon Dioxide Level 28 26 Anion Gap 7 5 Blood Urea Nitrogen 20 18 Creatinine 0.99 0.70 Est Glomerular Filtrat 60 > 60 Rate mL/min Glucose Level 100 82 Calcium Level 9.3 8.8 Troponin I < 0.012 Triglycerides Level 149 57 Cholesterol Level 160 131 LDL Cholesterol, 85 84 Calculated HDL Cholesterol 45 36 L Cholesterol/HDL Ratio 3.5 3.6 Thyroid Stimulating 1.860 4.630 Hormone (TSH) Free Thyroxine 1.50 1.30 Free Triiodothyronine 4.19 (T3) pg/mL POC Beta HCG, NEGATIVE Qualitative Urine Opiates Screen Negative Urine Barbiturates Negative Urine Amphetamines Negative Screen Urine Benzodiazepines Negative Screen Urine Cocaine Screen Negative Urine Cannabinoids Negative Hemoglobin A1c 5.2 Phosphorus Level 3.5 Magnesium Level 1.9 Past Medical History reviewed Home Meds Active Scripts Fluconazole* (Diflucan*) 150 Mg Tablet, 150 MG PO ONCE, #1 TAB Prov:ALEKSEY MORA MD 05/21/18 Phenazopyridine Hcl* (Pyridium*) 100 Mg Tab, 100 MG PO TID PRN for URINARY PAIN, #8 TAB Prov:ALEKSEY MORA MD 05/21/18 Cephalexin* (Keflex*) 500 Mg Capsule, 500 MG PO QID for 10 Days, CAP Prov:ALEKSEY MORA MD 05/21/18 Ibuprofen* (Motrin*) 800 Mg Tab, 800 MG PO Q6H PRN for PAIN AND OR ELEVATED TEMP, #30 TAB Prov:ALEKSEY MORA MD 05/21/18 Reported Medications Levothyroxine Sodium* (Levothyroxine Sodium*) 50 Mcg Tablet, 50 MCG PO BEFORE BREAKFAST, #30 TAB 05/21/18 Medications Current Medications Ondansetron HCl (Zofran Inj) 4 mg BRIDGE ORDER PRN IV NAUSEA/VOMITING; Start 10/16/18 at 21:30; Stop 10/17/18 at 21:29 Acetaminophen (Tylenol Tab) 650 mg ER BRIDGE PRN PO .MILD PAIN 1-3 OR TEMP; Start 10/16/18 at 21:30; Stop 10/17/18 at 21:29 IV Flush (NS 3 ml) 3 ml PER PROTOCOL IV ; Start 10/16/18 at 23:30 Ondansetron HCl (Zofran Inj) 4 mg Q6H PRN IV NAUSEA/VOMITING; Start 10/16/18 at 23:30 Acetaminophen (Tylenol Tab) 650 mg Q6H PRN PO .PAIN 1-3 OR TEMP; Start 10/16/18 at 23:30 Acetaminophen/ Hydrocodone Bitart ([place] (5/325)) 1 tab Q6H PRN PO .MOD PAIN 4- 6 Last administered on 10/16/18at 23:54; Admin Dose 1 TAB; Start 10/16/18 at 23:30 Morphine Sulfate (morphine) 2 mg Q4H PRN IV .SEVERE PAIN 7-10; Start 10/16/18 at 23:30 Docusate Sodium (Colace) 100 mg Q12H PRN PO .CONSTIPATION; Start 10/16/18 at 23:30 Magnesium Hydroxide (Milk Of Mag) 30 ml DAILY PRN PO .CONSTIPATION; Start 10/16/18 at 23:30 Heparin Sodium (Porcine) (Heparin (5000 Units/1ml)) 5,000 unit Q12 SC ; Start 10/17/18 at 09:00 Sodium Chloride 1,000 ml @ 75 mls/hr [id number] IV Last administered on 10/16/18at 23:46; Admin Dose 75 MLS/HR; Start 10/16/18 at 23:05 Lorazepam (Ativan) 0.5 mg Q6H PRN IV ANXIETY; Start 10/16/18 at 23:30 Albuterol/ Ipratropium (Duoneb) 3 ml Q4H RESP THERAPY PRN HHN SHORTNESS OF BREATH; Start 10/16/18 at 23:30 Hydralazine HCl (Apresoline) 10 mg Q6H PRN IV ELEVATED BLOOD PRESSURE; Start 10/16/18 at 23:30 Nitroglycerin (Nitroglycerin (Sl Tab) 0.4 Mg) 1 tab Q5M PRN SL ANGINA; Start 10/16/18 at 23:30 Aspirin (Ecotrin) 325 mg DAILY PO Last administered on 10/17/18at 08:54; Admin Dose 325 MG; Start 10/17/18 at 09:00 Levothyroxine Sodium (Synthroid) 50 mcg BEFORE BREAKFAST PO Last administered on 10/17/18at 07:39; Admin Dose 50 MCG; Start 10/17/18 at 07:00 Allergies: Coded Allergies: No Known Allergy (Unverified , 09/08/16) Past Surgical History Past Surgical Hx: other (Hysterectomy) Social History Alcohol Use: none Smoking Status: Never smoker Drug Use: none DEBORA PEPPER Oct 17, 2018 11:37
[2018-10-17] MEDS: SOD CHLORIDE 0.45% 1,000 ML IV SCH (14:11)
[2018-10-17 15:00] VITALS: BP 115/59; PULSE 59; RESP 20
--- NOTE | 2018-10-17 15:19 | RADRPT ---
Echocardiogram Report Patient Name: SHABBIR CASTANEDAPatient ID: [id number] : 1970 (48y 4m)Study Date: 10/17/2018 2:31:49 PM Gender: FAccession #: [id number] [place] [facility] [place] Location[place] [facility] Ref.Physician: ELSA YOUNG Height(Cm): 157 BSA: 1.69Weight(Kg): 65.8 Quality: AdequateOrder Physician: ELSA YOUNG Account #: Procedures: Echocardiographic Report: Transthoracic echocardiogram with complete 2D, M-Mode, and doppler examination. Indications: Chest Pain. Measurements: 2D/M Mode Doppler Measurement Value Normal Range Measurement Value Normal Range LVIDd 2D 5.2 [ 3.8 - 5.2 ] cm AV Peak Aiden 1.1 [ 100.0 - 170.0 ] cm/se c LVIDs 2D 3.5 [ 2.2 - 3.5 ] cm AV Peak PG 5.0 [ 2.0 - 9.0 ] mmHg LVPWd 2D 0.8 [ 0.6 - 0.9 ] cm LVOT Peak Aiden 0.7 [ 70.0 - 110.0 ] cm/sec IVSd 2D 0.9 [ 0.6 - 0.9 ] cm LVOT Peak PG 2.0 [ 2.0 - 6.0 ] mmHg AoR Diam 2D 2.9 [ 2.3 - 3.1 ] cm MV E Peak Aiden 0.7 [ 60.0 - 130.0 ] cm/sec EDV 2D 132.0 [ 46.0 - 106.0 ] ml MV A Peak Aiden 0.4 [ 100.0 - 120.0 ] cm/se c ESV 2D 51.6 [ 14.0 - 42.0 ] ml MV E/A 1.7 [ 0.8 - 1.5 ] ratio EF 2D 60.9 [ 54.0 - 74.0 ] percent MV PHT 52.0 [ 20.0 - 100.0 ] msec LA Dimen 2D 3.1 [ 2.7 - 3.8 ] cm MV Decel Time 176 [ 104 - 258 ] msec MV Decel [place] 4 Lat E` Aiden 0.1 [ 10.0 - 15.0 ] cm/sec Lateral E/E` 7.0 [ 1.0 - 2.0 ] ratio Med E` Aiden 0.1 cm/sec MV E/A 1.7 [ 0.8 - 1.5 ] ratio MVA PHT 4.2 [ 2.0 - 4.0 ] cm2 PV Peak Aiden 0.8 [ 40.0 - 80.0 ] cm/sec PV Peak PG 3.0 mmHg Findings: Left Ventricle: Lower limits of normal systolic function. Normal left ventricular cavity size. Normal left ventricular wall thickness. Ejection fraction is visually estimated at 50-55 %. Tissue Doppler/Mitral Doppler indices are within normal limits. Right Ventricle: Normal right ventricular size. Normal right ventricular systolic function. Left Atrium: The left atrium is normal in size. Right Atrium: The right atrium is normal in size. Atrial Septum: Normal atrial septum. Mitral Valve: Normal appearance and function of the mitral valve with trace physiologic regurgitation. Aortic Valve: No significant aortic stenosis or insufficiency. Normal trileaflet aortic valve structure. Tricuspid Valve: Normal appearance and function of the tricuspid valve with trace physiologic regurgitation. Normal right ventricular systolic pressure. Pulmonic Valve: Normal pulmonic valve appearance. No evidence of pulmonic regurgitation. Pericardium: Normal pericardium with no significant pericardial effusion. Aorta: Normal aortic root. IVC: Normal size and normal respiratory collapse consistent with normal right atrial pressure. Pulmonary Artery: Normal pulmonary artery size. Conclusions: Lower limits of normal systolic function. Normal left ventricular cavity size. Normal left ventricular wall thickness. Ejection fraction is visually estimated at 50-55 %. Tissue Doppler/Mitral Doppler indices are within normal limits. Electronically Signed By: Luis Hazel 2018-10-17 15:18:33 PDT
--- NOTE | 2018-10-17 17:04 | PDOCDIS ---
Discharge Instructions CONDITION [id number] Patient Condition: [id number] Stable HOME CARE INSTRUCTIONS: [id number] Diet Instructions: [id number] Regular ACTIVITY: [id number] Activity Restrictions: [id number] No Restrictions Slowly Increase Activity FOLLOW UP/APPOINTMENTS Follow-up Plan pcp 1wk; ask office to call Medical Records -[phone] & obtain Summary [facility] JOSH RODAS MD Oct 17, 2018 17:04
[2018-10-17] MEDS ORDERED: ACET325T33 PO (17:05)
--- NOTE | 2018-10-17 18:06 | DS ---
Date/Time of Note Date/Time of Note DATE: 10/17/18 TIME: 17:58 Discharge Summary Admission/Discharge Info Admit Date/Time Oct 16, 2018 at 21:20 Discharge Date/Time Patient Condition: Stable Consults Dr Edouard Procedures CXR -No acute process CAT scan brain No acute process MRI brain no contrast IMPRESSION: 1. No definite evidence of acute intracranial hemorrhage, infarcts or acute intracranial pathology. 2. Bilateral FLAIR and T2 white matter nonspecific hyperintensities. Differential diagnosis to include migrainous vasculopathy, vasculitis, demyelinating disease and early chronic microvascular ischemic disease. Recommend urologic consultation and follow-up contrast brain MRI. 3. Bilateral superficial parotid gland nodules measuring 7 mm on the right and 10 mm on the left. Recommend ENT consultation and follow-up high neck and dedicated parotid MRI. MRI soft tissue IMPRESSION: 1. No MRI evidence of acute pathology in the neck. 2. Slightly prominent periparotid nodules which may represent reactive periparotid lymph nodes. MRI brain with contrast MRI brain with contrast IMPRESSION: 1. No acute intracranial pathology. 2. Mild nonspecific white matter foci again seen which may be seen in the setting of a demyelinating process. Other possibilities include migraines, vasculitis, and chronic microvascular ischemic disease Carotid ultrasound -No acute process 2D echo Conclusions: Lower limits of normal systolic function. Normal left ventricular cavity size. Normal left ventricular wall thickness. Ejection fraction is visually estimated at 50-55 %. Tissue Doppler/Mitral Doppler indices are within normal limits. Electronically S Hx of Present Illness 48-year-old female admitted with acute symptoms of facial numbness bilaterally along with blurry vision and possible change in taste. CAT scan of the brain no acute process in ER. Telemetry neurology consulted. Hospital Course Hospitalist coverage Evaluated managed for acute neurological changes. CAT scan and MRI did not show any acute process. Patient was seen by neurology in house. No evidence of TIA stroke etc. Symptoms have improved and the patient wishes to go home. I think this is reasonable. Patient was recommended to follow-up with neurology in 1 month. May need serial imaging and evaluation of symptoms to follow for potential multiple sclerosis. Sinus bradycardia Chronic hypothyroidism. TSH/free T4 T3 are under control. Home Meds Active Scripts Acetaminophen* (Tylenol*) 325 Mg Tablet, 650 MG PO Q6H PRN for .PAIN 1-3 OR TEMP for 7 Days, TAB Prov:JOSH RODAS MD 10/17/18 Reported Medications Levothyroxine Sodium* (Levothyroxine Sodium*) 50 Mcg Tablet, 50 MCG PO BEFORE BREAKFAST, #30 TAB 05/21/18 Discontinued Scripts Fluconazole* (Diflucan*) 150 Mg Tablet, 150 MG PO ONCE, #1 TAB Prov:ALEKSEY MORA MD 05/21/18 Phenazopyridine Hcl* (Pyridium*) 100 Mg Tab, 100 MG PO TID PRN for URINARY PAIN, #8 TAB Prov:ALEKSEY MORA MD 05/21/18 Cephalexin* (Keflex*) 500 Mg Capsule, 500 MG PO QID for 10 Days, CAP Prov:ALEKSEY MORA MD 05/21/18 Ibuprofen* (Motrin*) 800 Mg Tab, 800 MG PO Q6H PRN for PAIN AND OR ELEVATED TEMP, #30 TAB Prov:ALEKSEY MORA MD 05/21/18 Follow-up Plan pcp 1wk; ask office to call Medical Records -[phone] & obtain Summary Referral Neurology 1month Primary Care Provider Care Physician No Primary Time spent on discharge: > 30 minutes Pending Labs Laboratory Tests Test 10/16/18 19:03 10/16/18 19:30 10/17/18 04:40 POC Beta HCG, NEGATIVE (NEGATIVE) Qualitative Urine Opiates Negative (NEGATIVE Screen ) Urine Barbiturates Negative (NEGATIVE ) Urine Amphetamines Negative (NEGATIVE Screen ) Urine Negative (NEGATIVE Benzodiazepines ) Screen Urine Cocaine Negative (NEGATIVE Screen ) Urine Cannabinoids Negative (NEGATIVE ) White Blood Count 6.3 10^3/ul (4.8-10.8) Red Blood Count 4.16 10^6/ul (4.20-5.40 ) Hemoglobin 13.0 g/dl (12.0-16.0) Hematocrit 38.8 % (37.0-47.0) Mean Corpuscular 93.3 Volume fl (82.0-101.0) Mean Corpuscular 31.3 Hemoglobin pg (29.0-33.0) Mean Corpuscular 33.5 Hemoglobin Concent g/dl (32.0-37.0) Red Cell 13.4 % (11.5-14.5) Distribution Width Platelet Count 239 10^3/UL (140-415) Mean Platelet 10.9 fl (7.4-10.4) Volume Immature 0.300 Granulocytes % % (0.001-0.429) Neutrophils % 35.4 % (39.0-77.0) Lymphocytes % 40.6 % (15.0-51.0) Monocytes % 9.8 % (0.0-11.0) Eosinophils % 13.3 % (0.0-7.0) Basophils % 0.6 % (0.0-2.0) Nucleated Red Blood 0.0 Cells % /100WBC (0.0-0.0) Immature 0.020 Granulocytes # 10^3/ul (0.0-0.031 ) Neutrophils # 2.2 10^3/ul (1.6-7.5) Lymphocytes # 2.5 10^3/ul (0.8-2.9) Monocytes # 0.6 10^3/ul (0.3-0.9) Eosinophils # 0.8 10^3/ul (0.0-0.5) Basophils # 0.0 10^3/ul (0.0-0.1) Nucleated Red Blood 0.0 Cells # 10^3/ul (0.0-0.0) Sodium Level 140 mmol/L (135-144) Potassium Level 3.6 mmol/L (3.5-5.1) Chloride Level 109 mmol/L (97-110) Carbon Dioxide 26 mmol/L (21-31) Level Anion Gap 5 (5-13) Blood Urea 18 mg/dl (7-20) Nitrogen Creatinine 0.70 mg/dl (0.44-1.00) Est Glomerular > 60 mL/min (>60) Filtrat Rate mL/min Glucose Level 82 mg/dl (70-220) Hemoglobin A1c 5.2 % (0-5.9) Calcium Level 8.8 mg/dl (8.4-10.2) Phosphorus Level 3.5 mg/dl (2.5-4.9) Magnesium Level 1.9 mg/dl (1.7-2.5) Triglycerides 57 mg/dl (0-149) Level Cholesterol Level 131 mg/dl (100-200) LDL Cholesterol, 84 mg/dl Calculated HDL Cholesterol 36 mg/dl (37-92) Cholesterol/HDL 3.6 RATIO Ratio Thyroid Stimulating 4.630 Hormone (TSH) MIU/L (0.465-4.680 ) Free Thyroxine 1.30 ng/dl (0.64-1.79) JOSH RODAS MD Oct 17, 2018 18:06
== END 2018-10-17 18:42 | disposition home or self-care (01) ==
LOC: E/R 17:11 → 2NE 21:20
PROVIDERS: ADMIT Hospitalist; ATTEND Hospitalist
DX: R20.0 Anesthesia of skin (principal); H53.8 Other visual disturbances; E03.9 Hypothyroidism, unspecified
CPT/HCPCS: 36415; 70450; 70542; 70552; 70553; 71045; 80048; 80061; 80307; 81025; 83036; 83735; 84100; 84439; 84443; 84481; 84484; 85025; 85610; 85730; 93005; 93306; 93880; J7030; Z7500; Z7502; Z7610; 99217; G0378; J1644